=== PATIENT | female | born 1970 | race Two or more races ===

== ENCOUNTER → 2018-12-23 | Outpatient (CLI) | payer OTHER ==
[~2018-12-23] MED LIST: BUPR15TA PO; PROT1TAB2 PO; PROZ40CA PO; VALI10TA PO
--- NOTE | 2019-01-09 00:35 | ECWPNPC ---
PATIENT NAME: JAYDEN SARAVIA : 1970 GENDER: FEMALE VISIT DATE: 12/23/2018 DISCHARGE DATE: 12/23/18 0000 VISIT LOCKED DATE TIME: PHYSICIAN: EMELINA PEACOCK MD RESOURCE: EMELINA PEACOCK MD REASON FOR APPOINTMENT 1. LEFT LEG HISTORY OF PRESENT ILLNESS FALL RISK SCREENING: SCREENING :NO FALLS IN THE PAST YEAR 48 YEAR OLD FEMALE PATIENT WITH A HISTORY OF CHRONIC LEFT LEG PAIN. THE PATIENT DESCRIBES THE PAIN ACHING AND CONTINUOUS WITH A PAIN SCORE OF 5-9/10 DEPENDING ON PHYSICAL ACTIVITY. THE PATIENT SAYS THAT HER PAIN STARTS AT HER LEFT KNEE AND RADIATES DOWN INTO HER LEFT FOOT. THE PATIENT SAYS THAT SHE BROKE HER LEFT ANKLE IN 1999 AND WAS DIAGNOSED WITH RSD FOLLOWING THE INJURY. THE PATIENT SAYS THAT SHE HAS BEEN UNABLE TO USE HER LEFT LEG FOR 17 YEARS AND HAS BEEN IN A WHEELCHAIR SINCE. THE PATIENT STATES THAT HER LEG ALWAYS STAYS IN A FLEXED POSITION AND SHE IS UNABLE TO MOVE IT. THE PATIENT SAYS THAT SHE IS UNABLE TO FUNCTION DUE TO AN INCREASE IN SEVERE MUSCLE CRAMPS IN MULTIPLE PLACES RECENTLY. THE PATIENT HAS BEEN DOING PHYSICAL THERAPY AND SAYS THAT IT HAS BEEN HELPING SOME. THE PATIENT STATES THAT SHE CURRENTLY LIVES ALONE, BUT HER DAUGHTER COMES OVER TO ASSIST HER. PATIENT DENIES UNEXPLAINABLE WEIGHT LOSS, FEVER, CHILLS, NEW CHANGES ON HER URINARY OR BOWEL CONTROL. PAIN SCREENING: PATIENT HAS A COMPLAINT OF ACUTE OR CHRONIC PAIN :YES CURRENT MEDICATIONS TAKING MAY HAVE - - DIRECTED SHOWER BENCH WITH BACK - G90.522 (RSD) DAILY TAKING VALIUM 10 MG TABLET 1 TABLET NEEDED ORALLY THREE TIMES A DAY TAKING NYSTOP [id number] UNIT/GM POWDER APPLY TO SKIN FOLDS EXTERNALLY TWICE A DAY TAKING NYSTATIN 345960 UNIT/GM CREAM 1 APPLICATION TO AFFECTED AREA EXTERNALLY TWICE A DAY TAKING BACITRACIN 500 UNIT/GM OINTMENT APPLY TO SORES ON BUTTOCKS AND THIGHS EXTERNALLY TWICE A DAY TAKING SILVADENE 1 % CREAM APPLIED TO SORES ON LEGS AND BUTTOCKS EXTERNALLY ONCE A DAY TAKING DIPHENHYDRAMINE HCL 50 MG CAPSULE 1 CAPSULE NEEDED ORALLY EVERY 8 HRS TAKING METOCLOPRAMIDE HCL 10 MG TABLET 1 TABLET BEFORE EACH MEAL AND AT BEDTIME ORALLY 4 TIMES A DAY TAKING BENEFIBER - POWDER 1 SCOOP ORALLY TWICE A DAY TAKING PHYSICAL THERAPY EVALUATE AND TREAT PHYSICAL THERAPY MECHANICAL EVAL & TX G90.522, REFLEX SYMPATHETIC DYSTROPHY 3 X/WK X TAKING PROTONIX 40 MG TABLET DELAYED RELEASE 1 TABLET ORALLY TWICE A DAY TAKING CALCIUM 200 MG TABLET ORALLY TAKING ADULT GUMMY/DHA/FA 0.4-25 MG TABLET CHEWABLE ORALLY NOT-TAKING RANITIDINE HCL 150 MG TABLET 1 TABLET AT BEDTIME ORALLY ONCE A DAY NOT-TAKING MELOXICAM 7.5 MG TABLET 1 TABLET WITH FOOD ORALLY ONCE OR TWICE A DAY NEEDED FOR PAIN MEDICATION LIST REVIEWED AND RECONCILED WITH THE PATIENT PAST MEDICAL HISTORY GENERALIZED ANXIETY DISORDER, FOLLOWED BY PSYCHIATRY ESOPHAGEAL REFLUX 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 CHRONIC PAIN ALLERGIES ACETAMINOPHEN: SWELLING, TONGUE SWELLING: ALLERGY SURGICAL HISTORY [place] REMOVAL YEARS AGO FAMILY HISTORY FATHER: 69 YRS, HEART ATTACK MOTHER: ALIVE, HEART ATTACK, STROKE, HYPERLIPIDEMIA, HYPERTENSION, BREAST CANCER, DIAGNOSED WITH DIABETES, HYPERTENSION, HEART DISEASE, STROKE, CANCER SOCIAL HISTORY GENERAL: TOBACCO USE ARE YOU A:NONSMOKER NEVER SMOKER LUNG CANCER SCREENING SMOKING STATUS:NON SMOKER BMI CARE GOAL FOLLOW-UP ABOVE NORMAL BMI FOLLOW-UPDIETARY MANAGEMENT EDUCATION, GUIDANCE, AND COUNSELING ALCOHOL SCREENING DID YOU HAVE A DRINK CONTAINING ALCOHOL IN THE PAST YEAR?NO POINTS0 INTERPRETATIONNEGATIVE RECREATIONAL DRUG USE DRUG USE?NO CAFFEINE CAFFEINE USE?NO SEXUAL HX HAD SEX IN THE LAST 12 MONTHS (VAGINAL, ORAL, OR ANAL)?YES WITHMEN ONLY USE PROTECTION?NO HAVE YOU EVER HAD AN STD?YES OTHER?YES GC?YES HIV / HEP-C SCREENING HIV TEST OFFERED TO PATIENT:YES DATE OFFERED:03/03/2018 TEST ACCEPTED:NO REASON:PATIENT DECLINED BROCHURE PROVIDED TO PATIENTYES UATSDIN UATSDIN NO TAOISM BELIEFS THAT WOULD IMPACT HEALTH CARE. LANGUAGE LANGUAGES SPOKEN:[place] EDUCATION LEVEL OF EDUCATION:NOT FINISHED HIGH SCHOOL 9TH GRADE LEARNING BARRIERS / SPECIAL NEEDS BARRIERS TO LEARNING?YES COMMENTS FUNCTIONALLY ILLITERATE HEARING IMPAIRED?NO VISION IMPAIRED?YES COGNITIVELY IMPAIRED?NO :CORRECTIVE LENSES READINESS TO LEARN?YES LEARNING PREFERENCES?YES :DEMONSTRATION/VERBAL INSTRUCTION LEARNING CAPABILITIES PRESENT?YES EMOTIONAL BARRIERS?NO SPECIAL DEVICES?YES :WALKER, WHEELCHAIR PBX MECHANIC NEEDED?NO OCCUPATION: DISABLED REFLEX SYMPATHETIC DYSTROPHY ENTIRE LEFT SIDE AND RIGHT FOOT. DIET: REGULAR. EXERCISE: NONE. MARITAL STATUS: SINGLE. OTHERS AT HOME: NONE. NEW PATIENT PAIN DIARY FROM 0-10, WHAT LEVEL IS YOUR PAIN TODAY?7 PAIN CLINIC PFS, CLERGY, PUBLIC HEALTH REFERRALS HAS THE PATIENT BEEN EDUCATED REGARDING HIS/HER PLAN OF CARE?YES HAS THE PATIENT BEEN EDUCATED REGARDING PAIN, THE RISK FOR PAIN, THE IMPORTANCE OF EFFECTIVE PAIN MANAGEMENT, AND THE PAIN ASSESSMENT PROCESS?YES ADVANCE DIRECTIVE ADVANCE DIRECTIVE DISCUSSED WITH PATIENT: DARIN MARTINEZ [phone] DAUGHTER IS HER HCP REVIEWED WITH PT 12/23/18 1300 BV. HOSPITALIZATION/MAJOR DIAGNOSTIC PROCEDURE CHEST PAIN, CARDIAC RULED OUT 05/2017 REVIEW OF SYSTEMS REVIEWED BY: PROVIDER: EMELINA PEACOCK MD . CONSTITUTIONAL: ANY CHANGE IN YOUR MEDICAL CONDITION? NO . CHILLS NO . FEVER NO . INFECTION: DO YOU HAVE NEW INFECTIONS? NO . DO YOU HAVE HISTORY OF MRSA? YES, HAD MRSA 2 YEARS AGO, WAS TREATED THEN . MUSCULOSKELETAL: ANY NEW PATTERNS OF PAIN OR NUMBNESS? NO . SYTEMIC LUPUS NO . GASTROENTEROLOGY: ANY NEW CHANGE IN BOWEL CONTROL? NO . BARRETTS ESOPHAGUS NO . CIRRHOSIS NO . HEPATITIS NO . LIVER FAILURE NO . ACID REFLUX YES, CHRONIC . UNEXPLAINED WEIGHT LOSS NO . GENITOURINARY: ANY NEW CHANGE IN BLADDER CONTROL? NO . IS THERE A CHANCE YOU COULD BE ? NO . HEMATOLOGY/LYMPH: DO YOU TAKE ANY BLOOD THINNERS? (FOR EXAMPLE- COUMADIN, PLAVIX, AGGRENOX, PLATEL, PRADAXA, OR XARELTO) NO . WHEN WAS YOUR LAST DOSE? DATE: TIME: . LOW PLATELET COUNT NO . SICKLE CELL DISEASE NO . VON WILLIEBRANDS NO . FACTOR V LEIDEN NO . THALLASEMIA NO . ANEMIA NO . EASY BRUISING NO . NEUROLOGY: HAVE YOU FALLEN IN THE PAST 12 MONTHS? NO . ANY NEW EXTREMITY NUMBNESS OR WEAKNESS? NO . HEAD INJURY NO . DEMENTIA NO . CEREBRAL PALSY NO . MULTIPLE SCLEROSIS NO . DIZZINESS LIGHTHEADED SENSATION, LASTING FOR HOURS . PT REPORTS HAVING THIS SENSATION INTERMITTENTLY OVER THE PAST COUPLE MONTHS. . HEADACHE NO . STROKES NO . VERTIGO NO . CARDIOLOGY: DO YOU HAVE A PACEMAKER OR DEFIBRILLATOR? NO . ANGINA NO . HEART ATTACK NO . HEART SURGERY NO . CONGESTIVE HEART FAILURE/FLUID OVERLOAD NO . CHEST PAIN PATIENT ADMITS TO HAVING GENERAL ANXIETY DISORDER AND HAS BEEN HOSPITALIZED A FEW TIMES WITH CHEST PAIN RELATED TO THIS. . HIGH BLOOD PRESSURE NO . IRREGULAR HEART BEAT NO . RESPIRATORY: HAVE YOU BEEN SICK IN THE PAST WEEK? NO . FEVER NO . FLU LIKE SYMPTOMS? NO . CPAP NO . BYPAP NO . ASTHMA NO . EMPHYSEMA NO . CHRONIC LUNG DISEASES NO . SHORTNESS OF BREATH ON EXERTION NO . COUGH NO . SNORING NO . INTEGUMENTARY: DO YOU HAVE ANY RASHES OR OPEN SORES? NO . ALLERGIC/IMMUNO: ARE YOU ALLERGIC TO IV DYE? NO . ANY NEW ALLERGIES? NO . PSYCHIATRIC: DO YOU HAVE THOUGHTS OF HURTING YOURSELF OR SOMEONE ELSE? NO . ARE YOU ABUSED, NEGLECTED, OR IN AN UNSAFE ENVIRONMENT? NO . ENDOCRINOLOGY: ARE YOU DIABETIC? NO . THYROID DISORDER NO . OTHER: DO YOU NEED ANY PRESCRIPTIONS? NO . IF YES, PLEASE LIST: ____ . ANY NEW PROBLEMS WITH YOUR MEDICATIONS? NO . WHEN DID YOU LAST EAT? ____ . WHEN DID YOU LAST DRINK? ____ . WHAT DID YOU LAST DRINK? ____ . NAME OF PERSON DRIVING YOU HOME? ____ . DO YOU HAVE ANY OTHER QUESTIONS OR CONCERNS NO . VITAL SIGNS WT 225.4 LBS, HT 65 IN, BMI 37.50 INDEX, BP 123/69 MM HG, HR 74 /MIN, RR 16 /MIN, TEMP 97 F,4 F, OXYGEN SAT % 97%, NA INITIALS AW 1253, REVIEWED BY: BV. EXAMINATION GENERAL EXAMINATION: PATIENT IS ALERT O X 3 AND COOPERATIVE. LUNGS CLEAR, TO AUSCULTATION. HEART: NO MURMURS OR GALLOPS; FACIAL CRANIAL NERVES ARE GROSSLY NORMAL. GOOD SYMMETRY OF FACIAL MUSCLE MOVEMENT. NORMAL VISUAL OLIVAS. PATIENT IS IN A WHEELCHAIR AND UNABLE TO AMBULATE. LEFT LEG IS IN FLEXED POSITION. LEFT LEG IS SWOLLEN AND RED DOWN TO FOOT. ALLODYNIA DOWN LEFT LEG. UPPER EXTREMITIES ARE WEAK AT EXTENSION AND FLEXION. HAND BALE OPENER OVER BOTH SIDES IS REDUCED. 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 SARAVIA'S PAIN MANAGEMENT CASE. THE PATIENT WILL CONTINUE PHYSICAL THERAPY SINCE SHE REPORTS IT HAS BEEN HELPING HER. I WILL START THE PATIENT ON CYMBALTA TO AID IN PAIN RELIEF. THE PATIENT IS UNABLE TO USE NSAID'S DUE TO STOMACH AND GASTRIC ISSUES. I WILL REQUEST AN INTERFERENTIAL TENS UNIT WELL. WE DISCUSSED THE PATIENT CONSIDERING A POSSIBLE DCS TRIAL IN THE FUTURE. THE PATIENT WILL FOLLOW UP IN 3 WEEKS. INSTRUCTIONS WERE GIVEN, QUESTIONS WERE ANSWERED, PATIENT REPORTS UNDERSTANDING AND AGREES WITH THE PLAN. I, JAY ALATORRE, DOCUMENTED THE ABOVE INFORMATION ACTING A SCRIBE FOR DR. PEACOCK. I HAVE REVIEWED THE ABOVE DOCUMENT, WRITTEN BY JAY OJEDA AND I VERIFY THAT IT IS ACCURATE. DEAR DR. BENJAMIN:THANK YOU FOR YOUR KIND REFERRAL OF MRS. SARAVIA. IF YOU WANT TO DISCUSS HER CASE WITH ME PLEASE CALL ME AT THE PAIN CENTER AT [phone]. SINCERELY,EMELINA PEACOCK, [facility]. OTHERS START CYMBALTA CAPSULE DELAYED RELEASE PARTICLES, 30 MG, 1 CAPSULE, ORALLY, ONCE A DAY, 30 DAY(S), 30, REFILLS 0 PREVENTIVE MEDICINE PAIN CLINIC TEACHING: MEDICATIONS PT GIVEN WRITTEN AND VERBAL EDUCATION ON STARTING CYMBALTA. PT VERBALIZES UNDERSTANDING OF ALL EDUCATION. KAVITA ROLDAN 12/23/2018 2:37:59 PM > . PROCEDURE CODES FA211 ESTABILISHED [facility]IENT [facility] FACILITY CHARGE G8427 CURRENT MEDS W/DOSAGES DOCUMENTED G8730 PAIN ASSESS POS TOOL F/U PLAN DOC DISPOSITION & COMMUNICATION FOLLOW UP 3 WEEKS (REASON: MULTIPLE BODY PAIN/LEFT LEG) ELECTRONICALLY SIGNED BY EMELINA PEACOCK MD, MD ON 01/08/2019 AT 03:22 PM EST DISCLAIMER : THIS IS A VISIT SUMMARY EXTRACTED FROM THE [employer] CHART. IT IS NOT A COPY OF THE [employer] PROGRESS NOTE. MTDD
== END ==
LOC: M PAIN 13:00
PROVIDERS: ATTEND Anesthesiology
DX: M79.605 Pain in left leg (principal); G57.92 Unspecified mononeuropathy of left lower limb; M79.10 Myalgia, unspecified site; F41.9 Anxiety disorder, unspecified; K21.9 Gastro-esophageal reflux disease without esophagitis; E66.9 Obesity, unspecified; Z68.37 Body mass index [BMI] 37.0-37.9, adult; Z79.899 Other long term (current) drug therapy; Z88.6 Allergy status to analgesic agent; Z86.14 Personal history of Methicillin resistant Staphylococcus aureus infection

== ENCOUNTER → 2020-04-05 | Outpatient (REF) | payer OTHER ==
[2020-04-05 18:56] LABS: FOLLICLE STIMULATING HORMONE 43.6 mIU/mL
== END ==
LOC: M SFHCLACO 11:38
PROVIDERS: ATTEND Physician Assistant
DX: N95.1 Menopausal and female climacteric states (principal)

== ENCOUNTER → 2020-04-30 | Outpatient (CLI) | payer OTHER ==
[~2020-04-30] MED LIST changes: +QC F0.52 PO
== END ==
LOC: M LABSMTC 10:48
PROVIDERS: ATTEND Anesthesiology
DX: Z01.818 Encounter for other preprocedural examination (principal); Z11.59 Encounter for screening for other viral diseases
CPT/HCPCS: C9803; U0003

== ENCOUNTER 2020-05-03 08:45 | Day surgery (SDC) | payer OTHER ==
[~2020-05-03] VITALS: Ht 165.1 cm; Wt 93.0 kg
[~2020-05-03 08:45] MED LIST changes: +NS 1,000 ML IV ONE
[2020-05-03] MEDS ORDERED: fentaNYL 100 MCG/2 ML INJECTION (J3010) As Ordered ONE (09:16)
[2020-05-03] MEDS ORDERED: LIDOCAINE 2% 100MG/5ML SDV (FOR ANES.) As Ordered ONE (09:17)
[2020-05-03] MEDS ORDERED: propofoL 500 MG/50 ML VIAL As Ordered ONE (09:17)
[2020-05-03] MEDS ORDERED: ePHEDrine SULFATE 25 MG/5 ML(5MG/ML) SYRINGE As Ordered ONE (10:16)
--- NOTE | 2020-05-03 10:55 | ROOR ---
Patient Name: February Peterson Procedure Date: 05/03/2020 9:56 AM Date of : 1970 Age: 50 Room: [facility] Gender: Female Note Status: Finalized Procedure: Upper GI endoscopy Indications: Epigastric abdominal pain, Abdominal pain in the right upper quadrant Providers: Chris Zepeda MD Referring MD: SHARRON Connors PA-C Requesting Provider: Medicines: Monitored Anesthesia Care Complications: No immediate complications. Procedure: Pre-Anesthesia Assessment: - Prior to the procedure, a History and Physical was performed, and patient medications and allergies were reviewed. The patient is competent. The risks and benefits of the procedure and the sedation options and risks were discussed with the patient. All questions were answered and informed consent was obtained. Patient identification and proposed procedure were verified by the physician, the nurse and the anesthesiologist in the procedure room. Mental Status Examination: alert and oriented. Airway Examination: normal oropharyngeal airway and neck mobility. Respiratory Examination: clear to auscultation. CV Examination: normal. Prophylactic Antibiotics: The patient does not require prophylactic antibiotics. Prior Anticoagulants: The patient has taken no previous anticoagulant or antiplatelet agents. ASA Grade Assessment: II - A patient with mild systemic disease. After reviewing the risks and benefits, the patient was deemed in satisfactory condition to undergo the procedure. The anesthesia plan was to use monitored anesthesia care (MAC). Immediately prior to administration of medications, the patient was re-assessed for adequacy to receive sedatives. The heart rate, respiratory rate, oxygen saturations, blood pressure, adequacy of pulmonary ventilation, and response to care were monitored throughout the procedure. The physical status of the patient was re-assessed after the procedure. The Endoscope was introduced through the mouth, and advanced to the second part of duodenum. The upper GI endoscopy was accomplished without difficulty. The patient tolerated the procedure well. Findings: The Z-line was irregular and was found 36 cm from the incisors. Mucosa was biopsied with a cold forceps for histology. One specimen bottle was sent to pathology. A small hiatal hernia was present. Scattered mild inflammation characterized by friability, granularity and linear erosions was found in the gastric antrum. Biopsies were taken with a cold forceps for Helicobacter pylori testing. The ampulla, duodenal bulb and second portion of the duodenum were normal. Biopsies for histology were taken with a cold forceps for evaluation of celiac disease. Verification of patient identification for the specimen was done by the physician and nurse using the patient's name, date and medical record number. Estimated blood loss was minimal. Impression: - Z-line irregular, 36 cm from the incisors. Biopsied. - Small hiatal hernia. - Gastritis. Biopsied. - Normal ampulla, duodenal bulb and second portion of the duodenum. Biopsied. Recommendation: - Patient has a contact number available for emergencies. The signs and symptoms of potential delayed complications were discussed with the patient. Return to normal activities tomorrow. Written discharge instructions were provided to the patient. - Resume previous diet. - Continue present medications. - Follow an antireflux regimen. - Await pathology results. - Telephone GI clinic for pathology results in 2 weeks. - Return to primary care physician. Chris Zepeda MD Chris Zepeda MD 05/03/2020 10:55:24 AM Electronically signed by Chris Zepeda MD Number of Addenda: 0 Note Initiated On: 05/03/2020 9:56 AM Estimated Blood Loss: Estimated blood loss was minimal.
[2020-05-03 11:10] VITALS: BP 116/70
--- NOTE | 2020-05-03 11:28 | ROOR ---
Patient Name: February Peterson Procedure Date: 05/03/2020 9:57 AM Date of : 1970 Age: 50 Room: [facility] Gender: Female Note Status: Finalized Procedure: Colonoscopy Indications: Chronic diarrhea Providers: Chris Zepeda MD Referring MD: SHARRON Connors PA-C Requesting Provider: Medicines: Monitored Anesthesia Care Complications: No immediate complications. Procedure: Pre-Anesthesia Assessment: - Prior to the procedure, a History and Physical was performed, and patient medications and allergies were reviewed. The patient is competent. The risks and benefits of the procedure and the sedation options and risks were discussed with the patient. All questions were answered and informed consent was obtained. Patient identification and proposed procedure were verified by the physician, the nurse and the anesthesiologist in the procedure room. Mental Status Examination: alert and oriented. Airway Examination: normal oropharyngeal airway and neck mobility. Respiratory Examination: clear to auscultation. CV Examination: normal. Prophylactic Antibiotics: The patient does not require prophylactic antibiotics. Prior Anticoagulants: The patient has taken no previous anticoagulant or antiplatelet agents. ASA Grade Assessment: II - A patient with mild systemic disease. After reviewing the risks and benefits, the patient was deemed in satisfactory condition to undergo the procedure. The anesthesia plan was to use monitored anesthesia care (MAC). Immediately prior to administration of medications, the patient was re-assessed for adequacy to receive sedatives. The heart rate, respiratory rate, oxygen saturations, blood pressure, adequacy of pulmonary ventilation, and response to care were monitored throughout the procedure. The physical status of the patient was re-assessed after the procedure. The Colonoscope was introduced through the anus and advanced to the terminal ileum, with identification of the appendiceal orifice and IC valve. The colonoscopy was performed without difficulty. The patient tolerated the procedure well. The quality of the bowel preparation was good. The terminal ileum, ileocecal valve, appendiceal orifice, and rectum were photographed. Scope insertion time was 3 minutes. Scope withdrawal time was 9 minutes. The total duration of the procedure was 12 minutes. Findings: The perianal and digital rectal examinations were normal. The terminal ileum appeared normal. Normal mucosa was found in the entire colon. Biopsies for histology were taken with a cold forceps from the right colon, left colon and rectosigmoid colon for evaluation of microscopic colitis. Verification of patient identification for the specimen was done by the physician and nurse using the patient's name, date and medical record number. Estimated blood loss was minimal. Non-bleeding external and internal hemorrhoids were found during retroflexion. The hemorrhoids were medium-sized. Impression: - The examined portion of the ileum was normal. - Normal mucosa in the entire examined colon. Biopsied. - Non-bleeding external and internal hemorrhoids. Recommendation: - Patient has a contact number available for emergencies. The signs and symptoms of potential delayed complications were discussed with the patient. Return to normal activities tomorrow. Written discharge instructions were provided to the patient. - High fiber diet. - Continue present medications. - Await pathology results. - Repeat colonoscopy in 10 years for screening purposes. - Telephone GI clinic for pathology results in 2 weeks. - Return to primary care physician. Chris Zepeda MD Chris Zepeda MD 05/03/2020 11:28:14 AM Electronically signed by Chris Zepeda MD Number of Addenda: 0 Note Initiated On: 05/03/2020 9:57 AM Estimated Blood Loss: Estimated blood loss was minimal.
== END 2020-05-03 11:48 | disposition home or self-care (01) ==
LOC: M OPP 08:45
PROVIDERS: ATTEND Internal Medicine Gastroenterology
DX: K64.8 Other hemorrhoids (principal); K52.9 Noninfective gastroenteritis and colitis, unspecified; K22.8 Other specified diseases of esophagus; K44.9 Diaphragmatic hernia without obstruction or gangrene; K29.70 Gastritis, unspecified, without bleeding; R10.13 Epigastric pain; R10.11 Right upper quadrant pain; Z79.899 Other long term (current) drug therapy; Z88.5 Allergy status to narcotic agent
CPT/HCPCS: 43239; 45380; 88305; J3010

== ENCOUNTER → 2021-01-20 | Outpatient (CLI) | payer OTHER ==
[~2021-01-20] MED LIST changes: -NS 1,000 ML IV ONE
--- NOTE | 2021-01-25 00:40 | ECWPNPC ---
PATIENT NAME: JAYDEN SARAVIA : 1970 GENDER: FEMALE VISIT DATE: 01/20/2021 DISCHARGE DATE: 01/20/21930 VISIT LOCKED DATE TIME: PHYSICIAN: YARIEL GUY PHYSICIAN PAGER NO: ACTIVE RESOURCE: YARIEL GUY REASON FOR APPOINTMENT 1. CHRONIC PAIN OF LEFT LEG AND ABDOMEN HISTORY OF PRESENT ILLNESS DEPRESSION SCREENING: PHQ-9 LITTLE INTEREST OR PLEASURE IN DOING THINGSNOT AT ALL FEELING DOWN, DEPRESSED, OR HOPELESSSEVERAL DAYS TROUBLE FALLING OR STAYING ASLEEP, OR SLEEPING TOO MUCHNOT AT ALL FEELING TIRED OR HAVING LITTLE ENERGYSEVERAL DAYS POOR APPETITE OR OVEREATING NOT AT ALL FEELING BAD ABOUT YOURSELF-OR THAT YOU ARE A FAILURE OR HAVE LET YOURSELF OR YOUR FAMILY DOWN MORE THAN HALF THE DAYS TROUBLE CONCENTRATING ON THINGS, SUCH READING THE NEWSPAPER OR WATCHING TELEVISION SEVERAL DAYS MOVING OR SPEAKING SO SLOWLY THAT OTHER PEOPLE COULD HAVE NOTICED. OR THE OPPOSITE- BEING SO FIDGETY OR RESTLESS THAT YOU HAVE BEEN MOVING AROUND A LOT MORE THAN USUALSEVERAL DAYS THOUGHTS THAT YOU WOULD BE BETTER OFF , OR OF HURTING YOURSELF IN SOME WAY?SEVERAL DAYS(CONSIDER SUICIDE ASSESSMENT RISK) TOTAL SCORE:7 INTERPRETATIONMILD DEPRESSION PHQ-2 (2015 EDITION) LITTLE INTEREST OR PLEASURE IN DOING THINGS?NOT AT ALL FEELING DOWN, DEPRESSED, OR HOPELESS?MORE THAN HALF THE DAYS TOTAL SCORE2 GENERAL: HERE PER REFERRAL OF PRIMARY CARE PROVIDER ELISSA BENJAMIN FOR CHRONIC LEFT LEG AND ABDOMINAL PAIN. THIS HAS BEEN A CHRONIC ISSUE FOR HER FOR 18 YEARS. SHE HAS TRIED MULTIPLE DIFFERENT MEDICATIONS OVER THE YEARS TO INCLUDE GABAPENTIN AND LYRICA WITHOUT IMPROVEMENT IN HER PAIN. SHE IS WHEELCHAIR DEPENDENT. CURRENTLY TAKING VALIUM 10 MG 3-4 TIMES DAILY. SHE IS WONDERING WHAT KIND OF MEDICATION WE WOULD RECOMMEND TO TREAT HER RSD PAIN. HONESTLY I HAVE LOOKED THROUGH HER RECORDS AND ONLY SUGGESTION WOULD BE FOR HER TO RETRY GABAPENTIN OR LYRICA. SHE IS NOT INTERESTED IN TRYING THESE MEDICATIONS BECAUSE SHE STATES THEY DON'T WORK. I WOULD NOT ADVISE NARCOTIC PAIN MEDICATION. RECENTLY STARTED ON CYMBALTA 30 MG DAILY THROUGH PRIMARY CARE. INFORMED HER THAT THIS SHOULD BE HELPFUL FOR RSD PAIN. REPORTS DEPRESSION TODAY THAT IS ELEVATED DUE TO UNCONTROLLED PAIN. DENIES SUICIDAL IDEATIONS. DENIES PLANS ON HURTING HERSELF. HAS BEEN REFERRED TO PSYCHIATRY WHICH PATIENT PLANS ON ATTENDING.- - -. FALL RISK SCREENING: SCREENING :NO FALLS REPORTED IN THE LAST YEAR PAIN SCREENING: PATIENT HAS A COMPLAINT OF ACUTE OR CHRONIC PAIN :YES LOCATION OF PAIN:ABDOMEN, LEG(S) INTENSITY OF PAIN (SCALE OF 1 TO 10):8 WHAT DOES YOUR PAIN FEEL LIKE:OTHER PATIENT STATES THE PAIN IS UNEXPLAINABLE IN HER STOMACH AND COMES AND GOES WITH FOOD. DURATION:INTERMITTENT, AWAKENS FROM SLEEP PAIN IS INCREASED BY:ACTIVITIES, OTHERS FOOD PAIN IS DECREASED BY:OTHERS OXYCODONE TOOK THE EDGE OFF NURSING NOTE: - - -. PAIN CENTER INTAKE QUESTIONS: DO YOU HAVE A HISTORY OF MRSA? :YES GENERALIZED DO YOU TAKE A BLOOD THINNERS? :NO DO YOU HAVE ANY BLEEDING DISORDERS? :NO ANY NEW NUMBNESS OR WEAKNESS IN YOUR LEGS OR ARMS? :YES GENERALIZED MUSCLE WEAKNESS ANY PACEMAKER,DEFIBRILLATOR, OR DORSAL COLUMN STIMULATOR? :NO DO YOU HAVE ANY RASHES OR OPEN SORES? :NO ARE YOU ALLERGIC TO IV DYE? :NO ARE YOU DIABETIC? :NO ANY NEW PROBLEMS WITH YOUR MEDICATIONS? :NO HAVE YOU RECEIVED A VACCINE IN THE PAST 30 DAYS? :NO DO YOU PLAN TO RECEIVE A VACCINE IN THE NEXT 21 DAYS? :NO DO YOU NEED ANY PRESCRIPTION? :NO DO YOU TAKE ANY IMMUNOSUPPRESSIVE MEDICATIONS? :NO IS THERE A CHANCE YOU COULD BE ? :NO ARE YOU BREAST FEEDING? :NO CURRENT MEDICATIONS TAKING NITROSTAT 0.4 MG TABLET SUBLINGUAL 1 TAB EVERY 5 MIN X 3 SUBLINGUAL NEEDED FOR PAIN AFTER EATING TAKING TOPIRAMATE 25 MG TABLET 1 TABLET ORALLY ONCE A DAY TAKING PROTONIX 40 MG TABLET DELAYED RELEASE 1 TABLET ORALLY TWICE A DAY TAKING CARAFATE 1 GM/10ML SUSPENSION 10 ML AT BEDTIME AND ON AN EMPTY STOMACH BEFORE MEALS ORALLY 3 TIMES A DAY TAKING BENEFIBER - POWDER 1 SCOOP ORALLY TWICE A DAY TAKING NYSTATIN [id number] UNIT/GM CREAM 1 APPLICATION TO AFFECTED AREA EXTERNALLY TWICE A DAY TAKING NYSTOP [id number] UNIT/GM POWDER APPLY TO SKIN FOLDS EXTERNALLY TWICE A DAY TAKING MONISTAT 7 2 % CREAM 1 APPLICATORFUL AT BEDTIME VAGINAL ONCE A DAY TAKING PREMPRO 0.3-1.5 MG TABLET 1 TABLET ORALLY ONCE A DAY TAKING SILVADENE 1 % CREAM APPLIED TO SORES ON LEGS AND BUTTOCKS EXTERNALLY ONCE A DAY TAKING BACITRACIN 500 UNIT/GM OINTMENT APPLY TO SORES ON BUTTOCKS AND THIGHS EXTERNALLY TWICE A DAY TAKING PROBIOTIC & ACIDOPHILUS EX ST - CAPSULE 1 CAPSULE ORALLY ONCE A DAY TAKING XIFAXAN 550 MG TABLET 1 TABLET ORALLY TWICE A DAY TAKING VALIUM 10 MG TABLET 1 TABLET NEEDED ORALLY 4 TIMES A DAY, MDD=4 TAKING FLUCONAZOLE 100 MG TABLET 2 TABS ON DAY 1 THEN 1 TAB DAILY X DAYS 2-21 ORALLY ONCE A DAY NOT-TAKING LOMOTIL 2.5-0.025 MG TABLET 2 TABLETS ORALLY FOUR TIMES A DAY (WITH MEALS AND AT BEDTIME) NOT-TAKING DIPHENHYDRAMINE HCL 50 MG CAPSULE 1 CAPSULE NEEDED ORALLY EVERY 8 HRS UNKNOWN FAMOTIDINE 20 MG TABLET 1 TABLET AT BEDTIME NEEDED ORALLY ONCE A DAY UNKNOWN HYDROXYZINE HCL 25 MG TABLET 1-2 TABLETS ORALLY TWICE A DAY NEEDED FOR ITCH MEDICATION LIST REVIEWED AND RECONCILED WITH THE PATIENT PAST MEDICAL HISTORY GENERALIZED ANXIETY DISORDER, FOLLOWED BY PSYCHIATRY ESOPHAGEAL REFLUX 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 CHRONIC PAIN ALLERGIES ACETAMINOPHEN: SWELLING, TONGUE SWELLING - ALLERGY LATEX (FOR ALLERGY USE ONLY): RASH - ALLERGY TRAMADOL HCL: THROAT SWELLING - ALLERGY SOCIAL HISTORY GENERAL: TOBACCO USE ARE YOU A:NONSMOKER NEVER SMOKER LATEX QUESTIONNAIRE LATEX ALLERGY : HAVE YOU EVER DEVELOPED ANY TYPE OF REACTION AFTER HANDLING LATEX PRODUCTS SUCH RUBBER GLOVES, CONDOMS, DIAPHRAGMS, BALLOONS, SOCKS, OR UNDERWEAR?YES - PLEASE INDICATE :OTHER (DOCUMENT IN NOTES) LATEX ALLERGY : HAVE YOU EVER DEVELOPED ANY TYPE OF REACTION DURING OR AFTER DENTAL APPOINTMENT, VAGINAL/RECTAL EXAMINATION, SURGICAL PROCEDURE, OR ANY OTHER EXPOSURE?NO LATEX RISK : HAVE YOU EVER HAD ANY DIFFICULTY BREATHING OR HIVES AFTER EATING OR HANDLING ANY FRUITS, OR VEGETABLES; SUCH KIWI, BANANAS, STONE FRUITS, OR CHESTNUTSNO LATEX RISK : DO YOU HAVE A PREVIOUS PERSONAL HISTORY OF MORE THAN NINE SURGERIES, SPINA BIFIDA, OR REPEATED CATHERIZATIONS? NO LATEX RISK : ARE YOU FREQUENTLY EXPOSED TO LATEX PRODUCTS IN YOUR OCCUPATION?NO DATE ASKED : 01/20/2021 ALCOHOL USE: NO. LUNG CANCER SCREENING SMOKING STATUS:NON SMOKER BMI CARE GOAL FOLLOW-UP ABOVE NORMAL BMI FOLLOW-UPDIETARY MANAGEMENT EDUCATION, GUIDANCE, AND COUNSELING ALCOHOL SCREENING DID YOU HAVE A DRINK CONTAINING ALCOHOL IN THE PAST YEAR?NO POINTS0 INTERPRETATIONNEGATIVE RECREATIONAL DRUG USE DRUG USE?NO CAFFEINE CAFFEINE USE?NO SEXUAL HX HAD SEX IN THE LAST 12 MONTHS (VAGINAL, ORAL, OR ANAL)?YES WITHMEN ONLY USE PROTECTION?NO HAVE YOU EVER HAD AN STD?YES OTHER?YES GC?YES HIV / HEP-C SCREENING HIV TEST OFFERED TO PATIENT:YES DATE OFFERED:03/03/2018 TEST ACCEPTED:NO REASON:PATIENT DECLINED BROCHURE PROVIDED TO PATIENTYES SABIANIST SABIANIST NO HINDUISM BELIEFS THAT WOULD IMPACT HEALTH CARE. LANGUAGE LANGUAGES SPOKEN:ICELANDIC EDUCATION LEVEL OF EDUCATION:NOT FINISHED HIGH SCHOOL 9TH GRADE LEARNING BARRIERS / SPECIAL NEEDS BARRIERS TO LEARNING?YES COMMENTS FUNCTIONALLY ILLITERATE HEARING IMPAIRED?NO VISION IMPAIRED?YES :CORRECTIVE LENSES COGNITIVELY IMPAIRED?NO READINESS TO LEARN?YES LEARNING PREFERENCES?YES :DEMONSTRATION/VERBAL INSTRUCTION LEARNING CAPABILITIES PRESENT?YES EMOTIONAL BARRIERS?NO SPECIAL DEVICES?YES :WALKER, WHEELCHAIR DAIRY TECHNICIAN NEEDED?NO OCCUPATION: DISABLED REFLEX SYMPATHETIC DYSTROPHY ENTIRE LEFT SIDE AND RIGHT FOOT. DIET: REGULAR. EXERCISE: NONE. MARITAL STATUS: SINGLE. OTHERS AT HOME: NONE. FROM 0-10, WHAT LEVEL IS YOUR PAIN TODAY?7 - HAS THE PATIENT BEEN EDUCATED REGARDING HIS/HER PLAN OF CARE?YES HAS THE PATIENT BEEN EDUCATED REGARDING PAIN, THE RISK FOR PAIN, THE IMPORTANCE OF EFFECTIVE PAIN MANAGEMENT, AND THE PAIN ASSESSMENT PROCESS?YES ADVANCE DIRECTIVE ADVANCE DIRECTIVE DISCUSSED WITH PATIENT: DARIN MARTINEZ [phone] DAUGHTER IS HER HCP REVIEWED WITH PT 12/23/18 1300 BV. REVIEW OF SYSTEMS CONSTITUTIONAL: ANY RECENT FEVER NO . CHILLS NO . WEIGHT CHANGE OF UNKNOWN REASONS NO . GASTROENTEROLOGY: NEW UNEXPLAINABLE CHANGES IN BOWEL CONTROL NO . CONSTIPATION NO . GENITOURINARY: ANY NEW CHANGE IN BLADDER CONTROL? NO . NEUROLOGY: NEW ONSET DIZZINESS OR NEUROLOGICAL CHANGES NOT MENTIONED NO . NEW NUMBNESS OR PAIN PATTERNS NOT MENTIONED AND PERTINENT TO TODAY'S VISIT NO . CARDIOLOGY: NEW CHEST PRESSURE NO . PATIENT DENIES NO . RESPIRATORY: UNEXPLAINABLE COUGH NO . NEW SHORTNESS OF BREATH NO . VITAL SIGNS WT 212.4 LBS, HT 65 IN, BMI 35.34 INDEX, BP 144/71 MM HG, HR 58 /MIN, RR 18 /MIN, TEMP 97.8 F, OXYGEN SAT % 99%, SAFE IN ENV? (Y/N) YES, REVIEWED BY: JADYN GRAY MA. EXAMINATION GENERAL EXAMINATION: GENERALNO ACUTE DISTRESS, WELL NOURISHED AND HYDRATED. PSYCHANXIETY,DEPRESSED AFFECT. LUNGS:CLEAR TO AUSCULTATION BILATERALLY, NO WHEEZES, RHONCHI, RALES. HEART:NO MURMURS, REGULAR RATE AND RHYTHM. ABDOMEN:POSITIVE BOWEL SOUNDS X4 QUADRANTS NONTENDER . MUSCULOSKELETAL:MARKED WEAKNESS AND HYPERSENSITIVITY TO LIGHT TOUCH OVER LEFT LEG IN ITS ENTIRETY. LEFT LEG ATROPHY NOTED . EXTREMITIES:LEFT FOOT IS RED AND SWOLLEN WHICH PATIENT STATES IS NORMAL. . 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 RECOMMEND CONTINUING WITH CYMBALTA PER PRIMARY CARE. CLINICAL NOTES: PROVIDER NOTIFIED OF PHQ9., TARAH GRAY MA . PROCEDURE CODES FA211 ESTABILISHED PATIENT [facility] CHARGE DISPOSITION & COMMUNICATION FOLLOW UP NO FOLLOW-UP NECESSARY (REASON: RSD LEFT LOWER EXTREMITY) ELECTRONICALLY SIGNED BY BROOKLYNN MEDINA ON 01/24/2021 AT 09:01 AM EST DISCLAIMER : THIS IS A VISIT SUMMARY EXTRACTED FROM THE [employer] CHART. IT IS NOT A COPY OF THE [employer] PROGRESS NOTE. ARTUR
== END ==
LOC: M PAIN 08:30
PROVIDERS: ATTEND Nurse Practitioner Family
DX: G90.50 Complex regional pain syndrome I, unspecified (principal); G89.29 Other chronic pain; K21.9 Gastro-esophageal reflux disease without esophagitis; Z86.14 Personal history of Methicillin resistant Staphylococcus aureus infection; Z86.59 Personal history of other mental and behavioral disorders; Z88.5 Allergy status to narcotic agent; Z88.6 Allergy status to analgesic agent; Z91.040 Latex allergy status; Z79.899 Other long term (current) drug therapy

== ENCOUNTER → 2021-02-20 | Outpatient (CLI) | payer OTHER ==
[~2021-02-20] MED LIST changes: +GLUCAGON INJ 1MG VIAL As Ordered ONE; +ISOVUE-370 76% 100ML VIAL As Ordered ONE; +VoLumen 0.1% SUSPENSION 450ML BOTTLE As Ordered ONE
--- NOTE | 2021-02-20 12:56 | REP ---
INDICATION: PARUMBILICAL PAIN *MAIN REG WAITING RM*. Suspected colitis in the past. Pelvic pain. Rule out small-bowel ulcers, bowel adhesions, lymphadenopathy, mesenteric vessels. COMPARISON: None. TECHNIQUE: The patient ingested oral Volumen for PO contrast per protocol. 0.6 mg of intravenous glucagon is administered. 100 ml of Isovue 370 is given intravenously for intravenous contrast. Helical scanning is acquired. Arterial phase and delayed phase imaging was acquired. Thick slab coronal and sagittal MIP images are generated. In addition coronal and sagittal multiplanar re-formation images are generated and reviewed along with axial images. FINDINGS: Digital preliminary infection control nurse radiograph shows clips in right upper quadrant. Bowel gas pattern is normal. Axial CT images of the lung bases show that they are clear. There is no evidence of pleural effusion or upper abdominal ascites. There is mild fatty infiltration of the liver. Venous contrast admixture is seen in the portal vein, this is a normal finding. Normal adrenal glands are observed. Clips are noted in the gallbladder fossa. No biliary ductal dilation is seen. No abnormality is noted in the pancreas. The kidneys enhance symmetrically. There is focal cortical scarring in the upper pole of the right kidney and anteriorly at mid pole level in the left kidney. Delayed acquisition postcontrast shows multiple bilateral renal cortical cysts. No hydronephrosis is seen. No calculus is observed. No retroperitoneal mass or adenopathy is seen. Normal caliber aorta. No visceral arterial disease is appreciated. Uterus and ovaries and urinary bladder are unremarkable. There is mild mural thickening and mild hyperenhancement in the distal colon involving the sigmoid colon segment consistent with enterocolitis. The rectum does not appear to be involved. The right colon does not appear to be involved. There are minimal mural thickening changes in the descending and splenic flexure segment of the colon. The small bowel has a normal appearance. Normal appendix is seen in the right lower quadrant. Maximum intensity projection images show no additional abnormality. There is no evidence of free air or abnormal fluid collection. IMPRESSION: Mucosal thickening and hyperenhancement affecting the sigmoid colon descending colon and splenic flexure segment of the colon consistent with inflammatory bowel disease/colitis. Renal cortical cysts. Post cholecystectomy. Otherwise negative. <Electronically signed by Macario Bledsoe > 02/20/21 [id number]
== END ==
LOC: M RAD 09:12
PROVIDERS: ATTEND Internal Medicine Gastroenterology
DX: R10.33 Periumbilical pain (principal)
CPT/HCPCS: 74177; J1610; Q9967

== ENCOUNTER → 2021-08-27 | Outpatient (REF) | payer OTHER ==
[~2021-08-27] MED LIST changes: -GLUCAGON INJ 1MG VIAL As Ordered ONE; -ISOVUE-370 76% 100ML VIAL As Ordered ONE; -VoLumen 0.1% SUSPENSION 450ML BOTTLE As Ordered ONE
[2021-08-27 18:27] LABS: ALBUMIN 3.5 GM/DL (3.2-5.2); ALT/SGPT 42 U/L (12-78); BILIRUBIN,TOTAL 0.5 MG/DL (0.2-1.0); BLOOD UREA NITROGEN 17 MG/DL (7-18); CALCIUM LEVEL 8.9 MG/DL (8.5-10.1); CARBON DIOXIDE LEVEL 25 MEQ/L (21-32); CHLORIDE LEVEL 107 MEQ/L (98-107); CHOLESTEROL LEVEL 182 MG/DL (<200); CHOLESTEROL RISK RATIO 3.192 (<5); CREATININE FOR GFR 0.87 MG/DL (0.55-1.30); GLOMERULAR FILTRATION RATE > 60.0 (>51); GLUCOSE, FASTING 82 MG/DL (70-100); HDL CHOLESTEROL 57 MG/DL (>40); LDL CHOLESTEROL 110 MG/DL (<100); NON-HDL-C 125 MG/DL; POTASSIUM SERUM 4.5 MEQ/L (3.5-5.1); SODIUM LEVEL 140 MEQ/L (136-145); THYROID STIMULATING HORMONE 0.637 uIU/ML (0.358-3.740); TOTAL PROTEIN 6.8 GM/DL (6.4-8.2); TRIGLYCERIDES LEVEL 75 MG/DL (<150)
[2021-08-27 18:31] LABS: FOLLICLE STIMULATING HORMONE 52.8 mIU/mL; LUTEINIZING HORMONE 38.6 mIU/mL
== END ==
LOC: M SFHCADAM 13:56
PROVIDERS: ATTEND Physician Assistant
DX: E78.2 Mixed hyperlipidemia (principal); R60.9 Edema, unspecified; N95.1 Menopausal and female climacteric states

== ENCOUNTER → 2022-04-29 | Outpatient (REF) | payer OTHER ==
[2022-04-29 17:44] LABS: APPEARANCE, URINE CLEAR (CLEAR); BACTERIA, URINE AUTO NEGATIVE (NEGATIVE); BILIRUBIN, URINE AUTO NEGATIVE (NEGATIVE); BLOOD, URINE BLOOD NEGATIVE (NEGATIVE); COLOR, URINE STRAW (YELLOW); GLUCOSE, URINE (UA) AUTO NEGATIVE (NEGATIVE); KETONE, URINE AUTO NEGATIVE (NEGATIVE); LEUKOCYTE ESTERASE, URINE AUTO NEGATIVE (NEGATIVE); NITRITE, URINE AUTO NEGATIVE (NEGATIVE); PROTEIN, URINE AUTO NEGATIVE (NEGATIVE); RBC, URINE AUTO 0 /HPF (0-3); SPECIFIC GRAVITY URINE AUTO 1.008 (1.002-1.035); SQUAMOUS EPITHELIAL CELL UR AU 0 /HPF (0-6); UROBILINOGEN, URINE AUTO 0.2 mg/dL (0.0-2.0); WBC, URINE AUTO 0 /HPF (0-3)
[2022-04-29 18:16] LABS: ALBUMIN 3.8 GM/DL (3.2-5.2); ALT/SGPT 27 U/L (12-78); BILIRUBIN,TOTAL 0.5 MG/DL (0.2-1.0); BLOOD UREA NITROGEN 11 MG/DL (7-18); CALCIUM LEVEL 8.9 MG/DL (8.5-10.1); CARBON DIOXIDE LEVEL 26 MEQ/L (21-32); CHLORIDE LEVEL 106 MEQ/L (98-107); CHOLESTEROL LEVEL 192 MG/DL (<200); CHOLESTEROL RISK RATIO 3.047 (<5); CREATININE FOR GFR 1.09 MG/DL (0.55-1.30); GLOMERULAR FILTRATION RATE 56.3 (>51); GLUCOSE, FASTING 89 MG/DL (70-100); HDL CHOLESTEROL 63 MG/DL (>40); LDL CHOLESTEROL 110 MG/DL (<100); NON-HDL-C 129 MG/DL; POTASSIUM SERUM 4.1 MEQ/L (3.5-5.1); SODIUM LEVEL 136 MEQ/L (136-145); TRIGLYCERIDES LEVEL 97 MG/DL (<150)
[2022-04-29 19:01] LABS: HEPATITIS C VIRUS ABY INDEX 0.1 INDEX (<0.8)
[2022-04-29 19:02] LABS: HIV 1&2 SCREEN CENTAUR NEGATIVE (NEGATIVE)
== END ==
LOC: M SFHCADAM 15:29
PROVIDERS: ATTEND Physician Assistant
DX: E78.2 Mixed hyperlipidemia (principal); R60.9 Edema, unspecified; R30.0 Dysuria; Z20.2 Contact with and (suspected) exposure to infections with a predominantly sexual mode of transmission

== ENCOUNTER → 2022-09-09 | Outpatient (REF) | payer OTHER | LOC: M SFHCADAM 11:57 | PROVIDERS: ATTEND Physician Assistant | DX: F11.90 Opioid use, unspecified, uncomplicated (principal) ==

== ENCOUNTER 2024-11-29 16:02 | Emergency (ER) | payer OTHER ==
[~2024-11-29 16:02] MED LIST changes: +DIAZ-654 PO; -VALI10TA PO
[2024-11-29] MEDS ORDERED: SUCR1TA PO (16:29)
[2024-11-29 19:58] LABS: KETONE, URINE AUTO RFX NEGATIVE (NEGATIVE); LEUKOCYTE ESTERASE UR AUTO RFX NEGATIVE (NEGATIVE); MUCUS, URINE RFX SMALL (NEGATIVE); NITRITE, URINE AUTO RFX NEGATIVE (NEGATIVE)
[2024-11-29 20:44] LABS: BASO % 0.5 % (0.0-1.0); EOS # 0.3 10^3/uL (0.0-0.5); HEMATOCRIT 40.9 % (36.0-47.0); HEMOGLOBIN 13.3 g/dl (12.0-15.5); LYMPH # 2.1 10^3/uL (1.5-5.0); LYMPH % 24.1 % (24.0-44.0); MEAN CORPUSCULAR HEMOGLOBIN 28.3 pg (27.0-33.0); MEAN CORPUSCULAR HGB CONC 32.5 g/dl (32.0-36.5); MONO # 0.7 10^3/uL (0.0-0.8); NEUTROPHILS # 5.6 10^3/uL (1.5-8.5); NEUTROPHILS % 64.3 % (36.0-66.0); PLATELET COUNT, AUTOMATED 282 10^3/uL (150-450); WHITE BLOOD COUNT 8.7 10^3/uL (4.0-10.0)
[2024-11-29 21:04] LABS: Trichomonas vaginalis (AMP) NOT DETECTED (NEGATIVE)
[2024-11-29 21:05] LABS: HCG, SERUM QUALITATIVE NEGATIVE (NEGATIVE)
[2024-11-29 21:28] LABS: GC DNA AMPLIFICATION NEGATIVE (NEGATIVE)
[2024-11-29] MEDS ORDERED: BENZ200C70 PO (21:43)
[2024-11-29] MEDS ORDERED: FLUC150T9 PO (21:43)
[2024-11-29] MEDS ORDERED: DOXY-441 PO (21:43)
[2024-11-29] MEDS ORDERED: LOTR1CRE12 TOP (21:45)
[2024-11-29] MEDS: ALBUTEROL 90 MCG/ACT 8GM HFA INHALER INH ONE (21:53)
[2024-11-29] MEDS: BENZONATATE 100MG CAPSULE PO ONE (21:57)
[2024-11-29] MEDS: DOXYCYCLINE HYCLATE 100MG TABLET PO ONE (21:57)
[2024-11-29] MEDS ORDERED: PROT1TAB2 PO (22:04)
[2024-11-29] MEDS ORDERED: CARA1TAB6 PO (22:04)
[2024-11-29 22:11] VITALS: BP 132/80; TEMP 98; O2SAT 99
== END 2024-11-29 22:13 | disposition home or self-care (01) ==
LOC: M ED 16:02
DX: J01.90 Acute sinusitis, unspecified (principal); B37.9 Candidiasis, unspecified; Z76.0 Encounter for issue of repeat prescription; K42.9 Umbilical hernia without obstruction or gangrene; J45.909 Unspecified asthma, uncomplicated; K21.9 Gastro-esophageal reflux disease without esophagitis; F41.9 Anxiety disorder, unspecified; F32.A Depression, unspecified; Z88.5 Allergy status to narcotic agent; Z88.6 Allergy status to analgesic agent; Z79.899 Other long term (current) drug therapy

== ENCOUNTER 2025-10-22 12:55 | Emergency (ER) | payer OTHER ==
[~2025-10-22] VITALS: Ht 154.9 cm; Wt 93.2 kg
[~2025-10-22 12:55] MED LIST changes: +BENZ200C70 PO; +CARA1TAB6 PO; +DOXY-441 PO; +FLUC150T9 PO; +LOTR1CRE12 TOP; +SUCR1TA PO
[2025-10-22 13:48] LABS: KETONE, URINE AUTO RFX NEGATIVE (NEGATIVE); LEUKOCYTE ESTERASE UR AUTO RFX NEGATIVE (NEGATIVE); MUCUS, URINE RFX SMALL (NEGATIVE); NITRITE, URINE AUTO RFX NEGATIVE (NEGATIVE); RBC, URINE AUTO RFX 0 /HPF (0-3); SQUAM EPITHELIAL CELL UR AURFX 3 /HPF (0-6); WBC, URINE AUTO RFX 1 /HPF (0-3)
[2025-10-22 16:51] LABS: BASO # 0.1 10^3/uL (0.0-0.2); BASO % 0.7 % (0.0-1.0); EOS # 0.2 10^3/uL (0.0-0.5); EOS % 2.2 % (0.0-3.0); LYMPH # 3.1 10^3/uL (1.5-5.0); LYMPH % 33.3 % (24.0-44.0); MONO # 0.8 10^3/uL (0.0-0.8); MONO % 8.1 % (2.0-8.0); NEUTROPHILS # 5.2 10^3/uL (1.5-8.5); NEUTROPHILS % 55.3 % (36.0-66.0); PLATELET COUNT, AUTOMATED 323 10^3/uL (150-450)
[2025-10-22 17:24] LABS: ALT/SGPT 20 U/L (7.0-40); AST/SGOT 23 U/L (<34); CALCIUM LEVEL 9.6 MG/DL (8.5-10.1); CARBON DIOXIDE LEVEL 29 MMOL/L (20-31); CHLORIDE LEVEL 102 MMOL/L (98-107); CREATININE FOR GFR 0.64 MG/DL (0.55-1.30); GLOMERULAR FILTRATION RATE > 90.0 (>51); POTASSIUM SERUM 4.3 MMOL/L (3.5-5.1); SODIUM LEVEL 139 MMOL/L (136-145)
[2025-10-22 18:30] VITALS: TEMP 97.9
[2025-10-22 19:55] VITALS: BP 145/81; O2SAT 100
== END 2025-10-22 19:50 | disposition home or self-care (01) ==
LOC: M ED 12:55
DX: R19.7 Diarrhea, unspecified (principal); N28.1 Cyst of kidney, acquired; D17.71 Benign lipomatous neoplasm of kidney; K21.9 Gastro-esophageal reflux disease without esophagitis; F41.9 Anxiety disorder, unspecified; F32.A Depression, unspecified; Z88.5 Allergy status to narcotic agent; Z88.6 Allergy status to analgesic agent; Z79.899 Other long term (current) drug therapy